=== PATIENT | male | born 1955 ===

== ENCOUNTER 2024-12-23 21:22 | Emergency (ER) | payer SELFPAY ==
--- NOTE | ~2024-12-23 | XR_ITS ---
EXAM: XR knee RT 3V DATE: 12/23/2024 21:53 HISTORY: R knee pain . COMPARISON: None available. FINDINGS: Osteopenia. No fracture or dislocation. No lytic or blastic lesion. Mild tricompartmental osteoarthritis. Quadriceps and patellar enthesopathy. No erosion or periosteal change. Trace right kn ee joint effusion Scattered vascular calcifications. Ill-defined patellar tendon borders. Soft tissue swelling over the medial quadriceps, possibly the VMO. IMPRESSION: No acute osseous finding in the right knee. Ill-defined patellar tendon borders, as can be seen with patellar tendon pathology. Medial quadriceps soft tissue swelling. Reviewed, dictated and finalized at location K. IMPRESSION: No acute osseous finding in the right knee. Ill-defined patellar tendon borders, as can be seen with patellar tendon pathol ogy. Medial quadriceps soft tissue swelling.
[2024-12-23 21:25] VITALS: BP 117/71; PULSE 78; RESP 17; TEMP 36.3; O2SAT 96
== END 2024-12-23 23:59 | disposition left against medical advice (07) ==
PROVIDERS: Emergency Provider Student in an Organized Health Care Education/Training Program
DX: S89.91XA Unspecified injury of right lower leg, initial encounter (principal); W10.9XXA Fall (on) (from) unspecified stairs and steps, initial encounter
CPT/HCPCS: 73562; 99199